=== PATIENT | female | born 2000 | race Two or more races ===

== ENCOUNTER → 2020-10-11 | Outpatient (CLI) | payer OTHER | END | disposition home or self-care (01) | LOC: LAB 15:04 | PROVIDERS: ATTEND Emergency Medicine Pediatric Emergency Medicine | DX: Z03.818 Encounter for observation for suspected exposure to other biological agents ruled out (principal) ==

== ENCOUNTER 2021-04-04 09:00 | Outpatient (CLI) | payer OTHER | END 2021-04-04 09:15 | disposition home or self-care (01) | LOC: PPH VACUNA 09:00 | PROVIDERS: ATTEND Emergency Medicine Pediatric Emergency Medicine | DX: Z23 Encounter for immunization (principal) ==

== ENCOUNTER 2021-08-14 22:03 | Emergency (ER) | payer OTHER ==
[~2021-08-14] VITALS: Ht 152.4 cm; Wt 86.2 kg
[2021-08-15] MEDS ORDERED: KETO10TA2 PO (02:58)
== END 2021-08-15 04:45 ==
LOC: ER 22:03
DX: R07.89 Other chest pain (principal)

== ENCOUNTER 2021-11-21 08:00 | Outpatient (CLI) | payer OTHER ==
[~2021-11-21 08:00] MED LIST: KETO10TA2 PO
== END 2021-11-21 08:05 | disposition home or self-care (01) ==
LOC: PPH VACUNA 08:00
PROVIDERS: ATTEND Emergency Medicine Pediatric Emergency Medicine
DX: Z23 Encounter for immunization (principal)

== ENCOUNTER 2022-12-29 15:10 | Outpatient (CLI) | payer OTHER ==
[~2022-12-29 15:10] MED LIST changes: +BACTRIM DS TAB1 EACH PO; +DICLOFENAC POTA50 MG PO
== END 2022-12-29 15:15 | disposition home or self-care (01) ==
LOC: RAD 15:10
DX: M99.01 Segmental and somatic dysfunction of cervical region (principal); M99.03 Segmental and somatic dysfunction of lumbar region; M99.04 Segmental and somatic dysfunction of sacral region; M99.05 Segmental and somatic dysfunction of pelvic region

== ENCOUNTER 2023-02-18 09:53 | Emergency (ER) | payer OTHER ==
[~2023-02-18] VITALS: Ht 152.4 cm; Wt 86.2 kg
[2023-02-18] MEDS ORDERED: DICLOFENAC SODI75 MG PO (11:16)
== END 2023-02-18 11:26 | disposition home or self-care (01) ==
LOC: ER 09:53
DX: M25.531 Pain in right wrist (principal)

== ENCOUNTER 2023-03-13 14:31 | Outpatient (CLI) | payer OTHER ==
[~2023-03-13 14:31] MED LIST changes: +DICLOFENAC SODI75 MG PO
== END 2023-03-13 14:40 | disposition home or self-care (01) ==
LOC: MRI 14:31
PROVIDERS: ATTEND Orthopaedic Surgery Hand Surgery
DX: M93.1 Kienbock's disease of adults (principal)
CPT/HCPCS: 73221

== ENCOUNTER 2024-04-28 13:25 | Emergency (ER) | payer OTHER ==
[~2024-04-28] VITALS: Ht 152.4 cm; Wt 86.2 kg
[~2024-04-28 13:25] MED LIST changes: +CABERGOLINE0.5 MG PO
[2024-04-28 13:31] VITALS: BP 113/53; O2SAT 100
[2024-04-28] MEDS ORDERED: KETOROLAC TROMETHAMINE 30 MG VIAL IM STA (14:16)
[2024-04-28] MEDS ORDERED: SUMATRIPTAN SUCCINATE 6 MG/0.5 ML VIAL SUBCUTANEO STA (14:17)
[2024-04-28] MEDS ORDERED: KETOROLAC TROMETHAMINE 30 MG VIAL ONE (14:26)
[2024-04-28] MEDS ORDERED: SUMATRIPTAN SUCCINATE 6 MG/0.5 ML VIAL SUBCUTANEO ONE (14:26)
== END 2024-04-28 16:38 | disposition home or self-care (01) ==
LOC: ER 13:28
DX: R51.9 Headache, unspecified (principal)

== ENCOUNTER 2024-05-10 15:45 | Outpatient (CLI) | payer OTHER | END 2024-05-10 15:55 | disposition home or self-care (01) | LOC: PPH VACUNA 15:45 | PROVIDERS: ATTEND Emergency Medicine Pediatric Emergency Medicine | DX: Z23 Encounter for immunization (principal) ==

== ENCOUNTER 2024-12-29 19:43 | Emergency (ER) | payer OTHER ==
[~2024-12-29] VITALS: Ht 152.4 cm; Wt 81.6 kg
[2024-12-29] MEDS ORDERED: KETOROLAC TROMETHAMINE 60 MG VIAL IM ONE ×2 (20:45→21:20)
[2024-12-29] MEDS ORDERED: DEXAMETHASONE SODIUM PHOSPHATE 4 MG/ML VIAL IM ONE (20:45)
[2024-12-29] MEDS ORDERED: DEXAMETHASONE SODIUM PHOSPHATE 4 MG/ML VIAL ONE (21:20)
[2024-12-29] MEDS ORDERED: EC-NAPROSYN500 MG PO (22:14)
== END 2024-12-29 22:40 | disposition home or self-care (01) ==
LOC: ER 19:44
DX: S96.812A Strain of other specified muscles and tendons at ankle and foot level, left foot, initial encounter (principal); X50.1XXA Overexertion from prolonged static or awkward postures, initial encounter; Y93.89 Activity, other specified; Y92.89 Other specified places as the place of occurrence of the external cause; J45.909 Unspecified asthma, uncomplicated